=== PATIENT | male | born 1995 | race Caucasian/White ===

== ENCOUNTER 2019-09-20 08:01 | Emergency (ER) | payer BC ==
[~2019-09-20] VITALS: Ht 172.7 cm; Wt 93.0 kg
[~2019-09-20 08:01] MED LIST: ACETAMINOPHEN-1 EAC1 PO; ERYTHROMYCIN E3.5 G1 OPHTHALMIC
[2019-09-20] MEDS ORDERED: PROTONIX40 M2 PO (08:20)
[2019-09-20] MEDS ORDERED: DIAZEPAM 5 MG5 M1 PO (09:17)
[2019-09-20] MEDS ORDERED: IBUPROFEN 800800 MG PO (09:17)
[2019-09-20 10:20] VITALS: BP 128/82
== END 2019-09-20 10:23 | disposition home or self-care (01) ==
LOC: M.ERS 08:01
DX: S06.0X0A Concussion without loss of consciousness, initial encounter (principal); S16.1XXA Strain of muscle, fascia and tendon at neck level, initial encounter; V89.2XXA Person injured in unspecified motor-vehicle accident, traffic, initial encounter; Y93.89 Activity, other specified; Y92.89 Other specified places as the place of occurrence of the external cause; Y99.8 Other external cause status